=== PATIENT | female | born 1960 | race Caucasian/White ===

== ENCOUNTER 2017-11-07 19:39 | Emergency (ER) | payer OTHER ==
[~2017-11-07] VITALS: Ht 154.9 cm; Wt 90.7 kg
[~2017-11-07 19:39] MED LIST: ACYCLOVIR400 MG PO; COQ-10100 MG PO; DAILY VITAMIN1 EAC2 PO; FLOMAX0.4 MG PO; FLUOXETINE HCL20 MG PO; KEFLEX500 MG PO; LOVASTATIN20 MG PO; MELATONIN5 M2 PO; MELOXICAM15 MG PO; METOPROLOL SUCC25 MG PO; MULTI VITAMIN1 EACH PO; NORCO 5-325 TA1 EACH PO; OMEGA 3-6-9 CO400 MG PO; PERCOCET 5-3251 EACH PO; TRIPLE OMEGA C400 MG PO; VITAMIN D32000 UNI1 PO; VITAMIN D32000 UNIT PO; VITAMIN E400 UNI1 PO; VITAMIN E400 UNI2 PO
[2017-11-07] MEDS ORDERED: POTASSIUM CITR10 MEQ PO (20:09)
== END 2017-11-07 23:24 | disposition home or self-care (01) ==
LOC: ED 19:39
PROC: 0RSXXZZ Reposition Left Finger Phalangeal Joint, External Approach (ICD-10-PCS; principal; 2017-11-07)
DX: S63.287A Dislocation of proximal interphalangeal joint of left little finger, initial encounter (principal); W23.0XXA Caught, crushed, jammed, or pinched between moving objects, initial encounter
CPT/HCPCS: 26770; 73140; 99283

== ENCOUNTER 2025-02-10 07:47 | Day surgery (SDC) | payer MEDICARE, OTHER ==
[~2025-02-10] VITALS: Ht 154.9 cm; Wt 85.0 kg
[~2025-02-10 07:47] MED LIST changes: +BUSPIRONE HCL5 MG PO; +CALCIUM + D3 E1 EACH PO; +DORZOLAMIDE-TIM10 ML OPTH; +DOXYCYCLINE HY100 MG PO; +HYDROXYZINE HCL10 MG PO; +IBLOOD GLUCOSE TEST STRIP 1 EA TEST VI PRN; +LACTATED RINGER'S 1,000 ML IV SCH; +LIDOCAINE HCL 1% 5 ML SDV INJ ONE; +LIDOCAINE HCL 2% 5 ML SDV ONE; +METFORMIN HCL500 M2 PO; +METROCREAM45 GM TOP; +OCUVITE BLUE L1 EACH PO; +POTASSIUM CITR10 MEQ PO; +VITAMIN D325 MC2 PO
--- NOTE | 2025-02-10 07:47 | NUR ---
PT NOT AVAILABLE FOR VISIT. PROVIDED PRAYER.
[2025-02-10 07:56] VITALS: BP 148/84
--- NOTE | 2025-02-10 09:52 | NUR ---
02/10/25 0952 Edilma Aguirre 0942-PATIENT ARRIVED TO PACU ON 2L NC RR EVEN NONAROUSABLE LAYING LEFT LATERAL ABDOMEN SOFT. IVF INFUSING. SR HR 70'S. SNORING
[2025-02-10 10:31] VITALS: BP 123/58
== END 2025-02-10 10:40 | disposition home or self-care (01) ==
LOC: OPS 07:47 → DS 07:47 → OPS 08:50 → DS 09:00 → OPS 09:00
PROVIDERS: ATTEND Surgery
PROC: 0DJD8ZZ Inspection of Lower Intestinal Tract, Via Natural or Artificial Opening Endoscopic (ICD-10-PCS; principal; 2025-02-10 08:50)
DX: Z12.11 Encounter for screening for malignant neoplasm of colon (principal); E78.5 Hyperlipidemia, unspecified; Z79.899 Other long term (current) drug therapy
CPT/HCPCS: 00811; J2003; J2704; J7121